=== PATIENT | female | born 1980 ===

== ENCOUNTER 2017-07-18 06:10 | Inpatient (IN) | payer OTHER ==
[2017-07-18 06:47] VITALS: BMI 29.2
[2017-07-18] MEDS: Lactated Ringer's 1,000 ML IV SCH ×3 (07:00→19:28)
[2017-07-18 07:04] LABS: BASO # 0.1 K/uL (0.0-0.2); BASO % 0.5 % (0.0-2.0); EOS # 0.2 K/uL (0.0-0.7); EOS % 1.1 % (0.0-4.0); HEMATOCRIT 41.9 % (34.0-47.0); LYMPH # 2.3 K/uL (1.0-4.3); LYMPH % 15.7 % (20.0-40.0); MEAN CELL VOLUME 90.6 fl (81.0-99.0); MEAN CORPUSCULAR HEMOGLOBIN 30.8 pg (27.0-31.0); MEAN PLATELET VOLUME 9.7 fl (7.2-11.7); MONO # 0.8 K/uL (0.0-0.8); MONO % 5.5 % (0.0-10.0); NEUT # 11.4 K/uL (1.8-7.0); NEUT % 77.2 % (50.0-75.0); NRBC % 0.1 % (0.0-0.0); RED CELL DISTRIBUTION WIDTH 14.5 % (11.5-14.5); WHITE BLOOD COUNT 14.7 K/uL (4.8-10.8)
[2017-07-18] MEDS ORDERED: cefOXitin Sodium 1 GM in Sodium Chloride 0.9% 100 ML IVPB STA (07:50)
[2017-07-18] MEDS ORDERED: Oxytocin 30 units/LR 500ML 30 U/500 ML BAG IV ONE (07:57)
--- NOTE | 2017-07-18 08:22 | OBADHP ---
Datetime: 07/18/2017 08:14 IP Adm Impression Other: prev C/S x2 Admit Comment, IP Provider: procedure explained, informed consent obtained Extremities - PN: Normal Abdomen - PN: Abnormal Back - PN: Normal Breast - PN: Normal Lungs - PN: Normal Heart - PN: Normal Thyroid - PN: Normal Neurologic - PN: Normal HEENT - PN: Normal General - PN: Normal FHR - Baseline A Provider: 150 Membranes, Provider: Intact Comments, ACOG Physical Exam: Abd gravid NT old scar Ext no calf tenderness Gestation - Est Wks by US: 39.0 IP Hx Assessment: The History has been Reviewed and is Current Vital Signs Provider: Reviewed IP Chief Complaint: Scheduled Section NICHD Variability Prov Fetus A: Moderate 6-25bpm NICHD Decel Fetus A IP Provider: None Genitourinary Exam: Normal DTRs - PN: Normal IP Adm Impression: Term, intrauterine IP Admit Plan: Admit to unit; Initiate Section protocol
[2017-07-18] MEDS ORDERED: Oxycodone/Acetaminophen 5/325 mg Tab PO PRN (09:51)
[2017-07-18] MEDS ORDERED: cefOXitin Sodium 1 GM in Sodium Chloride 0.9% 100 ML IVPB SCH (10:00)
[2017-07-19] MEDS: cefOXitin Sodium 1 GM in Sodium Chloride 0.9% 100 ML IVPB SCH ×2 (01:17→08:07)
--- NOTE | 2017-07-19 05:40 | OBPPN ---
Datetime: 07/19/2017 05:37 PP Pain Prov: Within normal limits PP Heart Prov: Normal PP Lungs Prov: Normal PP Progress Note Prov: Called by nurse patient reports some chest discomfort. The patient was seen and evaluated bedside patient states she's having incisional discomfort. Louise ent states the onset of pain started to give her anxiety. Patient states she was getting Toradol yest erday but they switched her medication to Motrin. Patient states she feels fine she is concerned that the pain medications not going to work for her and this is giving her anxiety and the discomfort. Th e patient was given the option of taking a Percocet or continue with Toradol. The plan of care was di scussed with her PMD. Vital Signs Provider PP: Reviewed
[2017-07-19] MEDS: Lactated Ringer's 1,000 ML IV SCH ×2 (05:56→14:15)
--- NOTE | 2017-07-19 06:32 | CARD ---
APPROVED REPORT EKG Measurement Heart [id number] <Conclusion> Normal sinus rhythm Normal ECG
[2017-07-19] MEDS: Levothyroxine 25 MCG TAB PO SCH (06:38)
[2017-07-19 07:08] LABS: MEAN CELL VOLUME 90.9 fl (81.0-99.0); MEAN CORPUSCULAR HEMOGLOBIN 30.2 pg (27.0-31.0); MEAN CORPUSCULAR HGB CONC 33.2 g/dL (33.0-37.0); RED CELL DISTRIBUTION WIDTH 14.5 % (11.5-14.5); WHITE BLOOD COUNT 15.6 K/uL (4.8-10.8)
--- NOTE | 2017-07-19 07:20 | OBPPN ---
Datetime: 07/19/2017 07:13 PP Pain Prov: Within normal limits PP Nausea Prov: Denies PP Flatus Prov: Yes PP BM Prov: No PP Breasts Prov: Normal PP Heart Prov: Normal PP Lungs Prov: Normal PP Abdomen/Uterus Prov: Normal PP Lochia Prov: Normal PP Vulva/Perineum Prov: Normal PP CVA Tenderness Prov: Normal PP Extremities Prov: Normal PP C/S Incision Prov: Normal PP Progress Prov: Normal PP Impression Prov: Normal progression PP Plan Prov: Continue present management PP Progress Note Prov: stable pod 1,feels better this morning,dressing clean advance diet as tolerat ed,dc dressing in am,oob with assistance malika gomez showalbert IP PP Procedures: None Vital Signs Provider PP: Reviewed; Within Normal Limits
[2017-07-20] MEDS: Levothyroxine 25 MCG TAB PO SCH (06:08)
--- NOTE | 2017-07-20 11:56 | OBPPN ---
Datetime: 07/20/2017 11:51 PP Pain Prov: Within normal limits PP Pain Prov comment: No SOB chest pains or leg pains PP Nausea Prov: Denies PP Flatus Prov: Yes PP BM Prov: No PP Nausea Prov comment: Denies C/F PP Flatus Prov comment: wants to go home today PP Breasts Prov: Normal PP Lungs Prov: Normal PP Abdomen/Uterus Prov: Abnormal PP Vulva/Perineum Prov: Normal PP CVA Tenderness Prov: Normal PP C/S Incision Prov: Normal PP Progress Prov: Normal PP Comments Phys Exam Prov: breast not engorged NT Abd soft ND, fundus firm below the umb Incision clean and dry no suppt or discharge Ext no calf tenderness. PP Impression Prov: Normal progression PP Plan Prov: Continue present management PP Progress Note Prov: Dulcolax suppt now and possible D/C home this pm IP PP Procedures: None Vital Signs Provider PP: Reviewed
--- NOTE | 2017-07-20 11:58 | OBDCSUM ---
Datetime: 07/20/2017 11:54 Discharged to, Provider: Home Follow up at, Provider: Dr Clark Disch Instr Activity: Bedrest; May be up to bathroom; May be up for meals; May Shower Disch Instr Diet: Regular Discharge Instructions, Provider: Routine instructions given Discharge Diagnosis, Provider: Term Delivered Discharge Time: 07/20/2017 15:00 Follow up in weeks, Provider: 1 wk Disch Referrals: None Contraception discussed, Prov: Yes Disch Activity Restrictions: No exercising; No lifting; No driving; Minimize walking; Minimize stair -climbing; No sexual activity; Nothing in vagina - Mylo, tampons, douche Discharge Comment, Provider: rx for Percocet and continue PNC vjit and iron Contraception after Delivery: Tubal Ligation
[2017-07-20 21:11] VITALS: BP 115/66; PULSE 99; RESP 20; TEMP 98.8; O2SAT 98
--- NOTE | 2017-07-21 08:52 | OP ---
PROCEDURE DATE: 07/18/2017 PREOPERATIVE DIAGNOSES: 1. at term. 2. Previous section. 3. Advanced maternal age. 4. Multiparity and voluntary sterilization. POSTOPERATIVE DIAGNOSES: 1. at term. 2. Fibroid uterus. PROCEDURES PERFORMED: 1. Repeat low transverse segment section. 2. Bilateral tubal sterilization using a modified Kleber procedure. SURGEON: Nemesio Clark MD ASSET AVAILABILITY LEADER: who was there for the entire duration of the case. Neurology Specialist needed in positioning the patient, delivering of the baby, opening and closing of the abdomen. TYPE OF ANESTHESIA: Spinal per Dr. Akbar. ESTIMATED BLOOD LOSS: 850 mL. DRAINS USED: None. REPLACEMENT USED: None. FINDINGS: 1. Delivered living baby boy, baby appears term, baby cried spontaneously, pediatrist in attendance, Apgars score of 9 and 9. 2. Amniotic fluid clear. 3. Placenta complete and intact. 4. Both tubes and ovaries appear grossly within normal limits on inspection bilaterally. 5. Bilateral tubal ligation, performed using the modified Oxford procedure. 6. A 2 x 3 cm anterior fundal fibroid noted to be present intramural. DESCRIPTION OF PROCEDURE: The patient was taken to the operating room and placed on the operating table in a supine position following induction of spinal anesthesia. The patient was then replaced in a supine position and a Cedeno catheter was inserted into the bladder and clear fluid was then evacuated from the bladder. Venodyne boots were then applied to both legs, and the abdomen was then draped and prepped in the usual sterile manner. At this time, we then proceeded to a test anesthesia, found successfully induced and a Pfannenstiel incision was then made using sharp dissection along the edges of the previous incision. The incision was then extended down to subcutaneous tissue using sharp dissection. At this time, hemostasis was obtained by means of electrocoagulation. Fascia was then identified, was then entered at the midline to expose the incision and the fascia was then extended laterally on each direction. After this, the rectus muscle was then identified and was then slit at the midline to expose the peritoneum. Peritoneal layer was then picked up using 2 Leticia clamps, retracted superiorly and then entered using sharp dissection. Incision of the peritoneum was then extended superiorly and inferiorly under direct visualization. At this time, uterus was then identified and the visceral peritoneum covering this area was then entered using sharp dissection. Using blunt dissection, a bladder flap was then created and retracted inferiorly using the same Ashton retractor. Following this, we then proceeded to making incision on the low transverse segment of the uterus. Upon entering the uterine cavity, clear fluid noted to be present. The incision was then extended laterally in each direction using bandage scissors. Using a manual scooping procedure, living baby boy was then delivered. Baby appeared term, baby cried spontaneously, there was a loop around the neck which was undone prior to full delivery. At this time, the umbilicus was then doubly clamped, cut and the baby handed to the pediatric personnel who was standing by. Samples of cord blood were then obtained and the placenta was then delivered complete and intact. Edges of the uterine incision was then secured using multiple T-clamps and the uterus had been exteriorized at this time in order to provide better visualization. The uterine cavity was then thoroughly cleaned using moist lap pad and it was then massaged and contracted well. The uterine incision was then approximated using 0 Vicryl in a continuous interlocking manner. A second layer was also applied using a Vicryl suture in a continuous manner. Hemostasis checked and found to be well secured. The bladder flap was then approximated using a 2-0 Vicryl in a continuous manner. At this time, both tubes and ovaries appeared grossly within normal limits to inspection bilaterally. The patient had requested tubal sterilization and again was asked and agreed with this. Following this, the right fallopian tube was then followed to its fimbriated end, was then grasped at ampullary region using a Chani clamp and retracted superiorly. After this, we then proceeded to place a 2-0 chromic suture through the mesosalpinx and the ampullary region of the right fallopian tube was then ligated. A 2-0 chromic free tie was then placed on the ligature and the ligated section of the tube was then resected and sent to pathology for proper pathological evaluation. The same procedure was then performed on the contralateral side without any complication. Following bilateral tubal sterilization, a 2 x3 cm anterior fibroid on the fundal area of the uterus was then noted to be present intramural. At this time, we then proceeded to remove free amniotic fluid and blood from the pelvic cavity. The pelvic cavity was then irrigated using saline solution and the uterus was then allowed to retract back into its original position. At this time, we then proceeded to approximate the peritoneum after all operative areas checked, hemostatically secured and the peritoneum was then closed using 0 Vicryl suture in a continuous manner. Rectus muscle was also approximated at the midline using the Vicryl suture in a continuous manner. Fascia was then identified, was then approximated using 1 Vicryl suture. Fascia was then checked and found to be free of defect. Subcutaneous tissue was then irrigated using saline solution and approximated using several interrupted 2-0 plain sutures. The skin was then approximated using a 3-0 Prolene in a subcuticular fashion. Steri-Strips were then applied. Sponge, instrument and needle counts were correct x3. The patient tolerated the procedure well. There were no complications. Clear fluid noted to be present in the Cedeno bag. She was transferred to the recovery room in satisfactory condition. Nemesio Clark MD
== END 2017-07-20 17:00 | disposition home or self-care (01) | DRG 371 ==
LOC: H.EROB2 06:10 → H.L&D 06:47 → H.OB/GYN 12:15
PROVIDERS: ADMIT Specialist; ATTEND Specialist
PROC: 10D00Z1 Extraction of Products of Conception, Low, Open Approach (ICD-10-PCS; principal; 2017-07-18)
PROC: 0UL70ZZ Occlusion of Bilateral Fallopian Tubes, Open Approach (ICD-10-PCS; 2017-07-18)
PROC: 4A1HXCZ Monitoring of Products of Conception, Cardiac Rate, External Approach (ICD-10-PCS; 2017-07-18)
DX: O34.219 Maternal care for unspecified type scar from previous cesarean delivery (principal); D25.9 Leiomyoma of uterus, unspecified; Z37.0 Single live birth; F41.9 Anxiety disorder, unspecified; N85.8 Other specified noninflammatory disorders of uterus; O99.344 Other mental disorders complicating childbirth; O34.13 Maternal care for benign tumor of corpus uteri, third trimester; Z3A.39 39 weeks gestation of pregnancy; O69.81X0 Labor and delivery complicated by cord around neck, without compression, not applicable or unspecified